=== PATIENT | male | born 1995 | race Caucasian/White ===

== ENCOUNTER 2022-06-24 17:58 | Emergency (ER) | payer OTHER ==
[~2022-06-24] VITALS: Ht 177.8 cm; Wt 102.3 kg
[2022-06-24] MEDS ORDERED: IBUP-1114 PO (18:14)
[2022-06-24] MEDS ORDERED: AUGMENTIN 875 MG TAB PO ONE (19:15)
[2022-06-24] MEDS ORDERED: AMOX875T2 PO (19:15)
[2022-06-24 19:24] VITALS: BP 136/73
== END 2022-06-24 19:25 | disposition home or self-care (01) ==
LOC: M ED 17:58
DX: H66.92 Otitis media, unspecified, left ear (principal); M54.9 Dorsalgia, unspecified; F17.290 Nicotine dependence, other tobacco product, uncomplicated

== ENCOUNTER 2024-08-25 16:00 | Inpatient (IN) | payer OTHER ==
[~2024-08-25] VITALS: Ht 177.8 cm; Wt 114.7 kg
[~2024-08-25 16:00] MED LIST: AMOX875T2 PO; IBUP-1114 PO
[2024-08-25] MEDS ORDERED: ISOVUE-370 76% 100ML VIAL As Ordered ONE (16:52)
[2024-08-25 17:09] LABS: BASO % 0.5 % (0.0-1.0); EOS # 0.1 10^3/uL (0.0-0.5); EOS % 1.4 % (0.0-3.0); HEMATOCRIT 42.4 % (42.0-52.0); HEMOGLOBIN 14.1 g/dl (13.5-17.5); LYMPH % 25.1 % (24.0-44.0); MEAN CORPUSCULAR HGB CONC 33.3 g/dl (32.0-36.5); MEAN CORPUSCULAR VOLUME 78.2 fl (80.0-96.0); MONO # 0.5 10^3/uL (0.0-0.8); MONO % 6.8 % (2.0-8.0); NEUTROPHILS # 5.2 10^3/uL (1.5-8.5); NEUTROPHILS % 65.8 % (36.0-66.0); PLATELET COUNT, AUTOMATED 359 10^3/uL (150-450); RED BLOOD COUNT 5.42 10^6/uL (4.30-6.10); WHITE BLOOD COUNT 7.9 10^3/uL (4.0-10.0)
[2024-08-25 17:18] LABS: INR 0.96; PARTIAL THROMBOPLASTIN TIME 27.8 SECONDS (24.8-34.2); PROTHROMBIN TIME 13.1 SECONDS (12.5-14.5)
[2024-08-25 17:51] LABS: BLOOD UREA NITROGEN 24 MG/DL (9-23); CALCIUM LEVEL 9.7 MG/DL (8.5-10.1); CARBON DIOXIDE LEVEL 20 MMOL/L (20-31); CHLORIDE LEVEL 108 MMOL/L (98-107); CREATININE FOR GFR 0.96 MG/DL (0.70-1.30); GLOMERULAR FILTRATION RATE > 60.0 (>60); GLUCOSE, FASTING 96 MG/DL (60-100); POTASSIUM SERUM 3.8 MMOL/L (3.5-5.1); SODIUM LEVEL 143 MMOL/L (136-145)
[2024-08-25] MEDS: TETRACAINE 0.5% OPHTH SOLN 4ML OU ONE (18:05)
[2024-08-25] MEDS ORDERED: HOME MED LIST COMPLETE! XX SCH (19:30)
[2024-08-25] MEDS ORDERED: FLUO-290 PO (19:30)
[2024-08-25] MEDS ORDERED: VYVA30CA4 PO (19:30)
[2024-08-25] MEDS ORDERED: HYDR1CAP25 PO (19:30)
[2024-08-25 21:08] LABS: HEMOGLOBIN A1c 5.6 % (4.0-6.0)
[2024-08-25 21:11] LABS: C REACTIVE PROTEIN QUANTITATIV < 0.50 MG/DL (<1.0); CPK CREATINE PHOSPHOKINASE 221 U/L (46-171); CREATININE FOR GFR 1.01 MG/DL (0.70-1.30); GLOMERULAR FILTRATION RATE > 60.0 (>60)
[2024-08-25 21:17] LABS: INR 0.96; PARTIAL THROMBOPLASTIN TIME 29.3 SECONDS (24.8-34.2); PROTHROMBIN TIME 13.1 SECONDS (12.5-14.5)
[2024-08-25 21:19] LABS: CK-MB VALUE MASS < 1.0 NG/ML (<3.6); MB/CK RELATIVE INDEX 0.45 (< OR =4)
[2024-08-25 22:09] LABS: ALBUMIN 4.2 G/DL (3.2-5.2); ALKALINE PHOSPHATASE 72 U/L (40-129); ALT/SGPT 26 U/L (7.0-40); AST/SGOT 13 U/L (<34); BILIRUBIN,DIRECT 0.1 MG/DL (<0.4); BILIRUBIN,TOTAL 0.5 MG/DL (0.3-1.2); CHOLESTEROL LEVEL 224 MG/DL (<200); CHOLESTEROL RISK RATIO 7.88 (<5); HDL CHOLESTEROL 28.4 MG/DL (>40); NON-HDL-C 195.6 MG/DL; TOTAL PROTEIN 7.2 G/DL (5.7-8.2); TRIGLYCERIDES LEVEL 278 MG/DL (<150)
[2024-08-25 22:10] LABS: RHEUMATOID FACTOR QUANT < 3.5 IU/ML (<14)
[2024-08-26] MEDS: ATORVASTATIN 20 MG TAB PO SCH (08:07)
[2024-08-26] MEDS ORDERED: ATOR1TAB21 PO (11:43)
[2024-08-26 12:00] VITALS: TEMP 96.1; O2SAT 98
[2024-08-26 12:09] VITALS: BP 134/75
[2024-08-28 01:28] LABS: SSA SJOGRENS A <1.0 NEG AI (<1.0 NEG); SSB SJOGRENS B <1.0 NEG AI (<1.0 NEG)
[2024-08-29 05:17] LABS: BORRELIA SPECIES DNA NOT DETECTED (NOT DETECT)
[2024-08-29 05:43] LABS: Babesia microti NOT DETECTED (NOT DETECT); Ehrlichia chaffeensis NOT DETECTED (NOT DETECT)
[2024-08-29 05:52] LABS: Anaplasma phagocytophilum NOT DETECTED (NOT DETECT)
== END 2024-08-26 12:14 | disposition home or self-care (01) | DRG 125 ==
LOC: M ED 16:00 → EDBD 16:00 → M ED INP 21:35
PROVIDERS: ADMIT Family Medicine; ATTEND Student in an Organized Health Care Education/Training Program
PROC: B246ZZZ Ultrasonography of Right and Left Heart (ICD-10-PCS; principal; 2024-08-26)
DX: H53.8 Other visual disturbances (principal); F41.9 Anxiety disorder, unspecified; F32.A Depression, unspecified; E78.5 Hyperlipidemia, unspecified; R20.0 Anesthesia of skin; Z63.31 Absence of family member due to military deployment; Z79.899 Other long term (current) drug therapy